=== PATIENT | female | born 1960 | race African-American/Black ===

== ENCOUNTER 2017-06-27 19:07 | Emergency (ER) | payer MEDICARE, MEDICAID ==
[2017-06-27] MEDS ORDERED: traMADol HCl 50 MG TAB ONE (19:23)
[2017-06-27] MEDS ORDERED: Adacel (T-DAP) 0.5 ML VIAL ONE (19:23)
== END 2017-06-27 19:49 | disposition home or self-care (01) ==
LOC: MADERS 19:07
DX: M79.652 Pain in left thigh (principal); K21.9 Gastro-esophageal reflux disease without esophagitis; K58.9 Irritable bowel syndrome, unspecified; I10 Essential (primary) hypertension
CPT/HCPCS: 90471; 90715